=== PATIENT | female | born 1955 | race Caucasian/White ===

== ENCOUNTER 2019-03-02 18:21 | Observation (INO) ==
[2019-03-02] MEDS ORDERED: Ibuprofen 800 MG TABLET PO ONE (19:25)
[2019-03-02] MEDS ORDERED: Ipratropium/Albuterol Neb 3 ML IH ONE (20:11)
[2019-03-02 20:36] LABS: Hematocrit 41.1 % (35.3-44.9); Hemoglobin 13.9 g/dL (11.5-15.4); Mean Corpuscular HGB Conc 33.8 g/dL (31.6-35.5); Mean Corpuscular Hemoglobin 31.4 pg (28.0-33.3); Mean Platelet Volume 8.9 fL (9.4-12.4); Monocytes # 0.4 K/mcL (0.0-1.3); Platelet Count 212 K/mcL (140-400); Red Blood Count 4.42 M/mcL (3.82-4.97); Red Cell Distribution Width 14.4 % (11.5-14.5); White Blood Count 19.9 K/mcL (4.3-11.1)
[2019-03-02 20:58] LABS: BUN/Creatinine Ratio 48 (6-26); Blood Urea Nitrogen 37 mg/dL (8-23); Calcium 9.2 mg/dL (8.6-10.3); Carbon Dioxide 30 mEq/L (23-29); Chloride 93 mEq/L (98-107); Glucose 199 mg/dL (70-105); Osmolality,Calculated 282 (280-300); Potassium 4.3 mEq/L (3.5-5.1); Sodium 129 mEq/L (136-145); eGFR For African Americans > 60 (> 60); eGFR For Non-African Americans > 60 (> 60)
[2019-03-02 21:09] LABS: Dohle Bodies Present (Not Present); Lymphocytes # 2.4 K/mcL (0.6-4.6); Neutrophils # 17.1 K/mcL (1.6-8.9); Platelet Estimate Normal (Normal); Toxic Granulation Present (Not Present); Toxic Vacuolation Present (Not Present)
[2019-03-02 21:10] LABS: Anisocytosis 1+ (Not Present)
[2019-03-02] MEDS ORDERED: levoFLOXacin 750 MG/150 ML 750 MG/150 ML BAG IVPB ONE (21:19)
[2019-03-02] MEDS ORDERED: 0.9 % Sodium Chloride 500 ML IVC ONE (23:47)
[2019-03-02] MEDS ORDERED: Naloxone 0.4 MG/ML INJ IVP PRN (23:53)
[2019-03-02] MEDS ORDERED: ALPRAZolam 1 MG TABLET PO PRN (23:57)
[2019-03-03] MEDS ORDERED: D5% in Water 1,000 ML IVC PRN (00:01)
[2019-03-03] MEDS ORDERED: *HR* Dextrose 50 % in Water (Vial) 50 ML VIAL IVP PRN (00:01)
[2019-03-03] MEDS ORDERED: Dextrose Gel 15 GM/37.5 ML TUBE PO PRN ×2 (00:01)
[2019-03-03] MEDS ORDERED: Ipratropium/Albuterol Neb 3 ML IH ONE (00:12)
[2019-03-03] MEDS: Ipratropium/Albuterol Neb 3 ML IH SCH ×3 (00:21→09:21)
[2019-03-03] MEDS ORDERED: 0.9 % Sodium Chloride 1,000 ML IVC SCH (02:00)
[2019-03-03] MEDS ORDERED: Furosemide 20 MG/2 ML VIAL IVP ONE (04:03)
[2019-03-03 04:42] LABS: Hematocrit 41.4 % (35.3-44.9); Hemoglobin 13.8 g/dL (11.5-15.4); Mean Corpuscular HGB Conc 33.3 g/dL (31.6-35.5); Mean Corpuscular Hemoglobin 31.5 pg (28.0-33.3); Mean Corpuscular Volume 94.5 fL (83.0-100.0); Mean Platelet Volume 9.5 fL (9.4-12.4); Platelet Count 204 K/mcL (140-400); Red Blood Count 4.38 M/mcL (3.82-4.97); Red Cell Distribution Width 14.6 % (11.5-14.5); White Blood Count 17.9 K/mcL (4.3-11.1)
[2019-03-03] MEDS ORDERED: methylPREDNISolone 125 MG/2 ML VIAL IM STA (05:21)
[2019-03-03 05:44] LABS: Lymphocytes # 2.2 K/mcL (0.6-4.6); Neutrophils # 15.8 K/mcL (1.6-8.9)
[2019-03-03 05:45] LABS: Anisocytosis 1+ (Not Present); Dohle Bodies Present (Not Present); Toxic Vacuolation Present (Not Present)
[2019-03-03 05:51] LABS: Hypochromasia Present (Not Present); Polychromasia 1+ (Not Present)
[2019-03-03 05:53] LABS: Platelet Estimate Normal (Normal); Toxic Granulation Present (Not Present)
[2019-03-03] MEDS ORDERED: methylPREDNISolone 125 MG/2 ML VIAL IVP SCH (06:00)
[2019-03-03] MEDS ORDERED: Tiotropium 18 MCG inhalation IH SCH (07:00)
[2019-03-03 07:03] VITALS: BP 99/61
[2019-03-03] MEDS ORDERED: Insulin LISPRO 300 UNITS/3 ML VIAL SQ SCH ×2 (07:30→21:00)
[2019-03-03] MEDS ORDERED: *HR* Metformin 500 MG TABLET PO SCH (08:00)
[2019-03-03] MEDS ORDERED: LIRAGLUTIDE 1.8 MG SQ SCH (09:00)
[2019-03-03] MEDS ORDERED: Aspirin Enteric Coated 81 MG Tablet PO SCH (09:00)
[2019-03-03] MEDS ORDERED: Cholecalciferol (D-3) 1,000 UNIT (25MCG) TABLET PO SCH (09:00)
[2019-03-03] MEDS ORDERED: Multivit/Ca/Min/Fe/FA 1 TAB TABLET PO SCH (09:00)
[2019-03-03] MEDS ORDERED: Isosorbide MONOnitrate (24 HR) 30 MG TAB.ER.24H PO SCH (09:00)
[2019-03-03] MEDS ORDERED: CarBAMazepine XR (12 hr) 100 MG TAB PO SCH (09:00)
[2019-03-03] MEDS ORDERED: Spironolactone 25 MG TABLET PO SCH (09:00)
[2019-03-03] MEDS ORDERED: tiZANidine 4 MG TABLET PO SCH (09:00)
[2019-03-03] MEDS ORDERED: Lisinopril 20 MG TABLET PO SCH (09:00)
[2019-03-03] MEDS ORDERED: Budesonide/Formoterol 160/4.5 1 PUFF INH IH SCH (10:00)
[2019-03-03] MEDS ORDERED: Insulin DETEMIR 100 UNIT/ML per UNIT SQ SCH (18:00)
[2019-03-03 20:05] LABS: Acinetobacter baumannii by PCR Not Detected (Not Detect); Candida albicans by PCR Not Detected (Not Detect); Candida glabrata by PCR Not Detected (Not Detect); Candida krusei by PCR Not Detected (Not Detect); Candida parapsilosis by PCR Not Detected (Not Detect); Candida tropicalis by PCR Not Detected (Not Detect); Enterobacter cloacae Cmplx PCR Not Detected (Not Detect); Enterobacteriaceae by PCR Not Detected (Not Detect); Enterococcus by PCR Not Detected (Not Detect); Escherichia coli by PCR Not Detected (Not Detect); Klebsiella oxytoca by PCR Not Detected (Not Detect); Klebsiella pneumoniae by PCR Not Detected (Not Detect); Proteus by PCR Not Detected (Not Detect); Pseudomonas aeruginosa by PCR Not Detected (Not Detect); Serratia marcescens by PCR Not Detected (Not Detect); Staphylococcus aureus by PCR Not Detected (Not Detect); Staphylococcus by PCR Not Detected (Not Detect); Streptococcus agalactiae(B)PCR Not Detected (Not Detect); Streptococcus by PCR Not Detected (Not Detect); Streptococcus pneumoniae PCR DETECTED (Not Detect); Streptococcus pyogenes (A) PCR Not Detected (Not Detect)
[2019-03-03] MEDS ORDERED: Fluticasone Propionate Nasal 50 MCG/SPRAY BOTTLE NS SCH (21:00)
== END 2019-03-03 07:15 | disposition other institution (70) ==
LOC: EMEROOPIK 18:21 → INPPIK 18:21
PROVIDERS: ADMIT Family Medicine; ATTEND Family Medicine